=== PATIENT | male | born 1970 | race Caucasian/White ===

== ENCOUNTER 2017-11-02 10:30 | Emergency (ER) | payer OTHER ==
[2017-11-02 10:43] VITALS: TEMP 98.8
[2017-11-02] MEDS ORDERED: LET GEL TOPICAL 1 EA SYR TP ONE (10:49)
--- NOTE | 2017-11-02 11:00 | EDPHY ---
H & P Time Seen by Provider: 11/02/17 10:36 HPI/ROS: CHIEF COMPLAINT: Dog bite HISTORY OF PRESENT ILLNESS: The patient is a 47-year-old man who was bitten by his neighbors Adelso Gooden while he was walking to work this morning. The dog bit through his pants. He has bite davidson to his right knee anteriorly and both thighs posteriorly powered no puncture wounds. No missing flesh. Dog is vaccinated the patient is up-to-date on his tetanus. REVIEW OF SYSTEMS: Constitutional: denies: chills, fever, recent illness, recent injury EENTM: denies: blurred vision, double vision, nose congestion Respiratory: denies: cough, shortness of breath Cardiac: denies: chest pain, irregular heart rate, lightheadedness, palpitations Gastrointestinal/Abdominal: denies: abdominal pain, diarrhea, nausea, vomiting, blood streaked stools Genitourinary: denies: dysuria, frequency, hematuria, pain Musculoskeletal: denies: joint pain, muscle pain Skin: See HPI Neurological: denies: headache, numbness, paresthesia, tingling, dizziness, weakness Hematologic/Lymphatic: denies: blood clots, easy bleeding, easy bruising Immunologic/allergic: denies: HIV/AIDS, transplant EXAM: GENERAL: Well-appearing, well-nourished and in no acute distress. HEAD: Atraumatic, normocephalic. EYES: Pupils equal round and reactive to light, extraocular movements intact, sclera anicteric, conjunctiva are normal. ENT: TMs normal, nares patent, oropharynx clear without exudates. Moist mucous membranes. NECK: Normal range of motion, supple without lymphadenopathy or JVD. LUNGS: Breath sounds clear to auscultation bilaterally and equal. No wheezes rales or rhonchi. HEART: Regular rate and rhythm without murmurs, rubs or gallops. ABDOMEN: Soft, nontender, normoactive bowel sounds. No guarding, no rebound. No masses appreciated. BACK: No CVA tenderness, no spinal tenderness, step-offs or deformities EXTREMITIES: Normal range of motion, no pitting or edema. No clubbing or cyanosis. NEUROLOGICAL: Cranial nerves II through XII grossly intact. Normal speech, normal gait. 5/5 strength, normal movement in all extremities, normal sensation PSYCH: Normal mood, normal affect. SKIN: See diagram, deep abrasions, no visible punctures or lacerations. Source: Patient - Medical/Surgical History Hx Asthma: Yes Hx Chronic Respiratory Disease: No Hx Diabetes: No Hx Cardiac Disease: No Hx Renal Disease: No Hx Cirrhosis: No Hx Alcoholism: No Hx HIV/AIDS: No Hx Splenectomy or Spleen Trauma: No Other PMH: denies - Family History Significant Family History: No pertinent family hx - Social History Smoking Status: Never smoked Alcohol Use: Sober Constitutional: Initial Vital Signs Temperature (C) 37.1 C 11/02/17 10:41 Heart Rate 88 11/02/17 10:41 Respiratory Rate 22 H 11/02/17 10:41 Blood Pressure 146/111 H 11/02/17 10:41 O2 Sat (%) 98 11/02/17 10:41 O2 Delivery Mode Room Air Allergies/Adverse Reactions: No Known Allergies Allergy (Verified 11/02/17 10:40) Home Medications: Medication Instructions Recorded Amoxicillin/Clavulanate Pot 875 mg PO BID #14 tab 11/02/17 [Augmentin 875Mg] ED Images - Extremities Legs Front/Back: 1 - Abrasion 2 - Abrasion 3 - Abrasion Medical Decision Making ED Course/Re-evaluation: The patient's wounds were cleaned and dressed. I will start him on antibiotics. Police have been notified. Declines further workup or testing. Differential Diagnosis: Partial list of the Differential diagnosis considered include but were not limited to; dog bite, puncture wound, foreign body and although unlikely based on the history and physical exam, I also considered infection, laceration, tendon injury, vascular injury. I discussed these differential diagnoses and the plan with the patient as well as the usual and expected course. The patient understands that the diagnosis is provisional and that in medicine we are not always correct and that further workup is often warranted. Usual and customary warnings were given. All of the patient's questions were answered. The patient was instructed to return to the emergency department should the symptoms at all worsen or return, otherwise to followup with the physician as we discussed. - Data Points Medications Given: Discontinued Medications Tetracaine/Epinephrine/Lidocaine (Let Gel Topical) 1 ea TP EDNOW ONE Stop: 11/02/17 10:50 Last Admin: 11/02/17 10:59 Dose: 1 ea Departure - Departure Disposition: Home, Routine, Self-Care Clinical Impression: Dog bite of right lower leg Qualifiers: Encounter type: initial encounter Qualified Code(s): S81.851A - Open bite, right lower leg, initial encounter; W54.0XXA - Bitten by dog, initial encounter ; W54.0XXA - Bitten by dog, initial encounter Dog bite of left lower leg Qualifiers: Encounter type: initial encounter Qualified Code(s): S81.852A - Open bite, left lower leg, initial encounter; W54.0XXA - Bitten by dog, initial encounter; W54.0XXA - Bitten by dog, initial encounter Condition: Fair Instructions: Animal Bite (ED) Referrals: NONE *PRIMARY CARE P,. [Primary Care Provider] - As per Instructions Prescriptions: Amoxicillin/Clavulanate Pot [Augmentin 875Mg] 875 mg PO BID #14 tab
[2017-11-02 11:44] VITALS: BP 130/93; PULSE 84; RESP 20; O2SAT 95
== END 2017-11-02 11:35 | disposition home or self-care (01) ==
LOC: CED 10:30
DX: S81.851A Open bite, right lower leg, initial encounter (principal); S81.852A Open bite, left lower leg, initial encounter; J45.909 Unspecified asthma, uncomplicated; W54.0XXA Bitten by dog, initial encounter; Y99.8 Other external cause status; Y93.01 Activity, walking, marching and hiking